=== PATIENT | male | born 1955 | race Caucasian/White ===

== ENCOUNTER → 2018-03-27 09:49 | Outpatient (CLI) | payer SELFPAY | PROVIDERS: Family Provider Internal Medicine; PCP Internal Medicine; Visit Provider Internal Medicine | DX: R06.81 Apnea, not elsewhere classified (principal); R53.83 Other fatigue | CPT/HCPCS: 95806 ==

== ENCOUNTER → 2021-11-15 14:21 | Outpatient (CLI) | payer SELFPAY ==
--- NOTE | 2021-11-15 14:50 | MRI_ITS ---
STUDY: MRI LEFT FOREFOOT WITH AND WITHOUT CONTRAST REASON FOR EXAM: Male, 66 years old. SEPTIC ARTHRITIS TECHNIQUE: Standardized fat and water weighted pulse sequences were obtained in all 3 orthogonal planes, post contrast administration. IV Yes YES was administered for the contrast portion of the examination. COMPARISON: None. FINDINGS: Mild cortical erosion is seen on the dorsal and medial side of the head of the first metatarsal bone consistent with mild osteomyelitis. Mild marrow edema is present in the same regions. A small to moderate size joint effusion of the first MTP is also present likely reactive or infected due to the osteomyelitis in the metatarsal head. Mild patchy marrow edema is also present at the base and shaft of the first metatarsal bone. Moderate subcutaneous and intramuscular edema surrounds the first MTP joint space, with mild edema extending into the second and third intermetatarsal spaces. No visualized intramuscular abscess. The first proximal phalanx is normal, as well as the distal phalanx. Intense enhancement of the first MTP joint and the surrounding soft tissues is consistent with active infection and inflammation. Normal tibial and fibular sesamoids, with normal sesamoids-first metatarsal articulations. Normal interphalangeal joint of the hallux. Normal proximal and distal phalanges of the great toe. Normal medial and lateral heads of the flexor hallucis brevis tendons. Normal flexor and extensor hallucis longus tendons. Normal second through fifth metatarsophalangeal (MTP) joints. Normal interphalangeal joints of the second through fifth toes. Normal proximal, middle and distal phalanges of the second through fifth toes. Normal flexor and extensor tendons of the second through fifth toes. Normal first through fourth intermetatarsal spaces. Normal remaining visualized metatarsi. IMPRESSION: First MTP septic arthritis with osteomyelitis in the head of the first metatarsal bone. Cellulitis and infectious myositis, but without an abscess. 1. Mild cortical erosion is seen on the dorsal and medial side of the head of the first metatarsal bone consistent with mild osteomyelitis. Mild marrow edema is present in the same regions. A small to moderate size joint effusion of the first MTP is also present likely reactive or infected due to the osteomyelitis in the metatarsal head. Mild patchy marrow edema is also present at the base and shaft of the first metatarsal bone. 2. Moderate subcutaneous and intramuscular edema surrounds the first MTP joint space, with mild edema extending into the second and third intermetatarsal spaces. 3. Intense enhancement of the first MTP joint and the surrounding soft tissues is consistent with active infection and inflammation. 4. No visualized intramuscular abscess. 5. The first proximal phalanx is normal, as well as the distal phalanx. Electronically Signed: Jason Ventura MD at 22:02 EST , MRI/Lower Ext Joint Only W/WO Cont
[2021-11-16 07:29] LABS: EGFR FINGERSTICK > 60 mL/min (>60)
== END ==
PROVIDERS: PCP Internal Medicine
DX: M10.9 Gout, unspecified (principal); M00.9 Pyogenic arthritis, unspecified
CPT/HCPCS: 73723; A9575